=== PATIENT | female | born 1945 | race Caucasian/White ===

== ENCOUNTER → 2016-09-29 10:41 | Outpatient (CLI) | payer MEDICARE, OTHER ==
[2015-05-26 09:21] VITALS: BMI 34.0
[~2016-09-29 10:41] MED LIST: CELEXA10 MG PO; COZAAR25 MG PO; CRESTOR5 MG PO; FEMARA2.5 MG PO; LOPRESSOR25 MG PO; LYRICA25 MG PO; NEXIUM20 MG PO; PERCOCET 5-3251 TAB PO; PLAVIX75 MG PO
== END | disposition home or self-care (01) ==
LOC: D.US 10:41
DX: R10.13 Epigastric pain (principal)

== ENCOUNTER → 2016-11-02 09:49 | Outpatient (CLI) | payer MEDICARE, OTHER ==
[2015-05-26 09:21] VITALS: BMI 34.0
== END | disposition home or self-care (01) ==
LOC: D.MAMMO 10-20 08:30
DX: Z85.3 Personal history of malignant neoplasm of breast (principal); Z12.31 Encounter for screening mammogram for malignant neoplasm of breast